=== PATIENT | male | born 1940 | race Two or more races ===

== ENCOUNTER 2024-07-22 12:16 | Emergency (ER) | payer MEDICARE, MEDICAID, SELFPAY ==
[2024-07-22 12:22] VITALS: BP 159/80; PULSE 81; RESP 19; TEMP 36.8; O2SAT 95; BMI 26.4
[2024-07-22] MEDS: DIPHTH,PERTUSS(ACELL),TET VAC 0.5 ML VIAL IMi (13:13)
--- NOTE | 2024-07-22 14:46 | PD.EDHAND ---
Upper Extremity Injury RME/HPI General Chief Complaint: Wound/Laceration Stated Complaint: LEFT HAND LACERATION Time Seen by Provider: 07/22/24 12:30 Source: patient Arrival date/time: 07/22/24 12:16 This is an 83-year-old male who presents to the emergency department with complaints of a laceration to his left palm. Patient reports he was attempting to grab a knife to cut a fruit when he accidentally lacerated between. his first and second digit of his left hand. No other injuries or concerns. Mode of arrival: ambulatory Limitations: no limitations Related Data Home Medications ?Medication ?Instructions ?Recorded ?Confirmed carvedilol 3.125 mg tablet 3.125 mg PO BID 04/15/24 04/19/24 lisinopril 20 mg tablet 20 mg PO HS 04/15/24 04/19/24 Previous Rx's ?Medication ?Instructions ?Recorded cephalexin 500 mg capsule 500 mg PO BID 5 days #10 caps 07/22/24 Allergies Allergy/AdvReac Type Severity Reaction Status Date / Time No Known Allergies Allergy Verified 07/22/24 12:18 Review of Systems Review of Systems Systems Reviewed: All systems reviewed, normal except as documented Narrative Review of Systems: Gen: No fever, no chills, no weight loss EYES: No discharge, no visual changes, no pain HEENT: No ear pain, no congestion, no sore throat PULM: No shortness of breath, no cough, no congestion CV: No chest pain, no dyspnea on exertion, no palpitations GI: No nausea, no vomiting, no diarrhea, no pain, no constipation : No frequency, no urgency,? no dysuria Musc/skel: No joint pain, no back pain Skin: laceration to palm Psyc: No hallucinations, no depression Heme/Lymph: No easy bleeding or bruising tendencies Neuro: No weakness, no headache ED Exam General Limitations: Present no limitations General appearance: Present alert and in no apparent distress Head Head exam: Present atraumatic Eye Eye exam: Present normal appearance, PERRL and EOMI ENT ENT exam: Present normal exam, normal oropharynx and mucous membranes moist Neck Neck exam: Present normal inspection, full ROM and trachea midline Chest Chest inspection: Present normal inspection and symmetric chest wall rise Respiratory Respiratory exam: Present normal lung sounds bilaterally Cardiovascular Cardiovascular exam: Present regular rate, normal rhythm and normal heart sounds Abdominal Exam Abdominal exam: Present soft and normal bowel sounds Extremities Exam Extremities exam: Present full ROM Expanded Upper Extremity Exam Shoulder exam: Present normal inspection Elbow exam: Present normal inspection Hand L/R front image: 1. laceration (2cm super ficial laceration) Back Exam Back exam: Present normal inspection and full ROM Neurological Exam Neurological exam: Present alert, oriented X3 and CN II-XII intact Psychiatric Psychiatric exam: Present normal affect and normal mood Skin Skin exam: Present warm, dry, intact and normal color Course Quality Measures none Orders Category Date Time Status Wound Care NOW Care 07/22/24 13:09 Completed Tet,Diphth,Pertuss(Acell)-Tdap [Boostrix Vacc] Med 07/22/24 13:09 Discontinued 0.5 ml IMI .ONCE ONE Vital Signs Vital signs: Vital Signs Temperature 98.3 F 07/22/24 12:22 Pulse Rate 81 07/22/24 12:22 Respiratory Rate 19 07/22/24 12:22 Blood Pressure 159/80 H 07/22/24 12:22 Pulse Oximetry (%) 95 07/22/24 12:22 Oxygen Delivery Method Room Air 07/22/24 12:22 Procedures -ED Laceration Laceration 1: Site: hand Side (If applicable): left Size (cm): 2 Description: linear Depth: simple, single layer Local Anesthetic: lidocaine 1% Amount of anesthesia used (mL): 10 Pre-repair: wound explored Skin layer closed with: vicryl Size (cm): 4-0 Number of sutures: 7 Technique: simple, interrupted Extremity Injury Patient data External records reviewed:: [facility] previous records Clinical information provided by:: patient Social determinants that could affect healthcare access:: none Patient has the following chronic illnesses:: no How is presenting disease/condition affected by chronic disease/condition?: no chronic disease Evaluation data The following diagnostics were reviewed and interpreted by me:: other (specify) Lab and/or radiology exams considered but not ordered:: no Interpretation Summary: no Medications / Prescriptions Medications or Prescriptions considered but not ordered:: no Medication administrations:: Medication Administration History Discontinued Medications Diphtheria/Tetanus/Acell Pertussis (Diphth,Pertuss(Acell),Tet Vac 0.5 Ml Vial) 0.5 ml IMi .ONCE ONE Stop: 07/22/24 13:10 Last Admin: 07/22/24 13:13 Dose: 0.5 ml Documented By: LUIS All medications administered and effective Consultations Consultation(s) initiated? (list below): No Diagnosis Upper Extremity Injury Differential Diagnosis: other ( skin avulsion, laceration, abrasion laceration left palm.) Most likely diagnosis given after review of the tests above:: laceration left palm. Admission Indicated Admission indicated?: not indicated Admission Request Was there a request for admission?: No Disposition Plan Disposition Plan: Discharge Discharge Attestation Discharge Attestation: The patient and all family members were given an opportunity to ask questions and understood the discharge instructions. Discharge instructions specifically effects, indications for sooner follow up or return to the emergency department, and the expected course of current diagnosis. Patient condition: Stable Discharge Plan Plan Patient Disposition: HOME (Self Care) Patient condition on transfer: Stable Prescriptions/Referrals Prescriptions/Med Rec: New cephalexin 500 mg capsule 500 mg PO BID 5 Days Qty: 10 0RF No Action lisinopril 20 mg tablet 20 mg PO HS carvedilol 3.125 mg Tablet 3.125 mg PO BID Rx Instructions: must administer with a meal/food Problem List Clinical Impression: Laceration Patient/Caregiver Discharge Instructions Discharge Activity: activity as tolerated Education Materials: ED Laceration Hand with ... Additional Instructions: Please follow up with Primary Doctor in 7-10 day for suture removal. Please return to ER if theres is any sign of infection. Please keep wound clean and dry. Print Language: Citizen Of [place] Stand Alone Forms: Nano Award Info., Patient Portal Info Letter SHEFALI/ERNA Supervising Physician PA/ERNA Supervising Physician: Dr Craven
== END 2024-07-22 15:25 | disposition home or self-care (01) ==
LOC: SERX 14:57
PROVIDERS: Emergency Provider Emergency Medicine; PCP Family Medicine
DX: S61.412A Laceration without foreign body of left hand, initial encounter (principal); W26.0XXA Contact with knife, initial encounter; Z23 Encounter for immunization
CPT/HCPCS: 12001; 90471; 90715; 99283

== ENCOUNTER 2025-01-31 11:09 | Emergency (ER) | payer MEDICARE, MEDICAID, SELFPAY ==
[2025-01-31 11:10] VITALS: BMI 25.0
--- NOTE | 2025-01-31 11:30 | PD.EDRME ---
Rapid Medical Screening Exam RME Arrival date/time: 01/31/25 11:09 84-year-old male with a history of hypertension presents to the emergency room with a chief complaint of difficulty urinating and abdominal distention. Patient states he is able to urinate but only dribbles. I have greeted and performed a focused initial assessment of this patient. A comprehensive ED assessment and evaluation of the patient, analysis of all test results, and completion of the medical decision making process will be conducted by additional ED providers. Chief Complaint: Recheck/Abnormal Lab/Rx Time Seen by Provider: 01/31/25 11:17 Vital signs reviewed by provider: Yes
[2025-01-31 11:31] VITALS: BP 144/89; PULSE 73; RESP 18; TEMP 36.9; O2SAT 98
[2025-01-31 12:03] LABS: Basophils # (Auto) 0.1 Thou/mm3 (0.0-0.2); Basophils % (Auto) 1 % (0-2.5); Eosinophils # (Auto) 0.2 Thou/mm3 (0.0-0.5); Eosinophils % (Auto) 3 % (0-10); Hematocrit 45.5 % (41.0-53.0); Hemoglobin 16.4 g/dL (13.5-16.0); Immature Granulocytes % (Auto) 1 % (0-0); Immature Granulocytes Auto 0.03 Thou/mm3 (0.00-0.00); Lymphocytes # (Auto) 2.1 Thou/mm3 (1.0-4.8); Lymphocytes % (Auto) 33 % (10-50); Mean Corpuscular Hemoglobin 32.3 pg (25.0-35.0); Mean Corpuscular Volume 90 fL (80-100); Monocytes # (Auto) 0.7 Thou/mm3 (0.0-0.8); Monocytes % (Auto) 10 % (0-12); Neutrophils # (Auto) 3.4 Thou/mm3 (1.8-7.7); Neutrophils % (Auto) 52 % (37-80); Nucleated Red Blood Cell % 0 /100 WBC (0); Platelet Count 187 Thou/mm3 (140-440); RDW Standard Deviation 42.4 fL (35.1-43.9); Red Blood Count 5.07 Miln/mm3 (4.50-5.90); White Blood Count 6.4 Thou/mm3 (3.8-10.6)
[2025-01-31 12:04] LABS: Collection Type, Urine Clean Catch; RBC,Urine 0 /hpf (0-3); Squamous Epithelial Cell,Urine 0 /hpf (0-5)
[2025-01-31 12:16] LABS: Alanine Aminotransferase 13 U/L (10-49); Albumin, Serum 4.4 gm/dL (3.4-4.8); Albumin/Globulin Ratio 1.5 (1.2-2.2); Alkaline Phosphatase 80 U/L (46-116); Anion Gap 10 (7-16); Aspartate Amino Transferase 20 U/L (0-34); BUN/Creatinine Ratio 11 Ratio (12-20); Bilirubin,Total 0.7 mg/dL (0.3-1.2); Blood Urea Nitrogen 15 mg/dL (9-23); Calcium 8.9 mg/dL (8.3-10.6); Calcium (Corrected) 8.9 mg/dL (8.5-10.1); Carbon Dioxide 27.3 mMol/L (20.0-31.0); Chloride 104 mMol/L (98-107); Creatinine (Component) 1.4 mg/dL (0.6-1.3); Estimated Creatinine Clearance 35.4 mL/min (>60); Glucose 89 mg/dL (74-106); Lipase 53 U/L (12-53); Osmolality,Calculated 281 (275-295); Potassium 4.1 mMol/L (3.4-5.1); Sodium 141 mMol/L (136-145); Total Protein 7.4 gm/dL (5.7-8.2); eGFR 50 See Note
[2025-01-31 12:17] LABS: Bilirubin,Urine Negative (Negative); Blood,Urine Negative (Negative); Clarity,Urine Clear (Clear/Hazy); Color,Urine Lt-Yellow (Lt Yel-Yel); Glucose, Urine Negative (Negative); Hyaline Casts,Urine < 1 /hpf (0-1); Ketones,Urine Negative (Negative); Leukocyte Esterase,Urine Negative (Negative); Nitrite,Urine Negative (Negative); PH,Urine 5.5 (5.0-7.0); Protein,Urine Negative (Neg - Trace); Urobilinogen,Urine Negative mg/dL (0.0-1.0); WBC,Urine < 1 /hpf (0-5)
[2025-01-31 16:37] LABS: Prostate Specific Antigen 2.24 ng/mL (0-4.00)
--- NOTE | 2025-01-31 17:01 | PD.EDMALE ---
ED Male Genitalurinary RME/HPI General Chief complaint: Recheck/Abnormal Lab/Rx Stated complaint: NOT PEEING ENOUGH X1 MONTH HX PROSTATE ISSUES Time Seen by Provider: 01/31/25 11:17 Arrival date/time: 01/31/25 11:09 This is a case of 84-year-old male with a history of hypertension presents to the emergency room with a chief complaint of difficulty urinating and abdominal distention. Patient states he is able to urinate but only dribbles. Patient states that since last year he was on and off here due to urinary retention and have history of Pena catheter placement he was regularly seen by the urologist Dr Ferris patient is fine until today patient is unable to urinate for 6 hours thus decided to start consult here in the emergency room denies any dysuria hematuria fever chills abdominal pain flank pain abdominal pain lower back pain Limitations: no limitations RME / HPI RME / HPI Narrative: 01/31/25 11:09 84-year-old male with a history of hypertension presents to the emergency room with a chief complaint of difficulty urinating and abdominal distention. Patient states he is able to urinate but only dribbles. I have greeted and performed a focused initial assessment of this patient. A comprehensive ED assessment and evaluation of the patient, analysis of all test results, and completion of the medical decision making process will be conducted by additional ED providers. Related Data Home Medications ?Medication ?Instructions ?Recorded ?Confirmed carvedilol 3.125 mg tablet 3.125 mg PO BID 04/15/24 04/19/24 lisinopril 20 mg tablet 20 mg PO HS 04/15/24 04/19/24 Allergies Allergy/AdvReac Type Severity Reaction Status Date / Time No Known Allergies Allergy Verified 01/31/25 11:13 Review of Systems Review of Systems Systems Reviewed: All systems reviewed, normal except as documented Constitutional Constitutional: Reports system reviewed and no additional complaints, except as documented and Reports as per HPI Cardiovascular Cardiovascular: Reports system reviewed and no additional complaints, except as documented and Reports as per HPI Respiratory Respiratory: Reports system reviewed and no additional complaints, except as documented and Reports as per HPI Gastrointestinal Gastrointestinal: Reports system reviewed and no additional complaints, except as documented, Reports as per HPI, Denies abdominal pain, Denies diarrhea, Denies fecal incontinence, Denies hematemesis, Denies nausea and Denies vomiting Genitourinary Genitourinary: Reports system reviewed and no additional complaints, except as documented, Reports as per HPI, Reports difficulty urinating, Denies dysuria, Denies hematuria, Denies nocturia, Denies penile discharge, Denies scrotal swelling, Denies urinary frequency, Denies urinary hesitancy, Reports urinary incontinence and Denies urinary urgency Musculoskeletal Musculoskeletal: Reports system reviewed and no additional complaints, except as documented and Reports as per HPI Neurologic Neurologic: Reports system reviewed and no additional complaints, except as documented and Reports as per HPI Past Medical History Past Medical History NEUROLOGIC: Negative Neurological Disorders or Seizures CARDIAC: Positive Cardiac Disorders and Hypertension; Negative Congestive Heart Failure RESPIRATORY: Negative Chronic Obstructive Pulmonary Disease (COPD) GASTROINTESTINAL: Negative Gastrointestinal Disorders or Hepatitis GENITOURINARY: Negative Genitourinary Disorders or Renal Disease MUSCULOSKELETAL: Positive Musculoskeletal Disorders and Arthritis ENDOCRINE: Negative Endocrine Disorders, Diabetes Mellitus Type 1 or Diabetes Mellitus Type 2 HEMATOLOGIC: Negative Blood Disorders OTHER HISTORY: Positive Measles; Negative Falls, Blood Transfusions, Blood Transfusion Reaction, Anesthesia Reactions, MRSA or Cancer Family History FAMILY HISTORY: Negative Family Cardiac Disorders or Family Anesthesia Reaction Social History SMOKING STATUS: Never smoker ED Exam General Limitations: Present no limitations General appearance: Present alert and in no apparent distress; Absent appears intoxicated or anxious Head Head exam: Present atraumatic, normocephalic and normal inspection Eye Eye exam: Present normal appearance, PERRL and EOMI ENT ENT exam: Present normal exam, normal oropharynx and mucous membranes moist Neck Neck exam: Present normal inspection, full ROM and trachea midline Chest Chest inspection: Present normal inspection and symmetric chest wall rise Respiratory Respiratory exam: Present normal lung sounds bilaterally; Absent respiratory distress, wheezes, stridor, accessory muscle use or prolonged expiratory phase Cardiovascular Cardiovascular exam: Present regular rate, normal rhythm and normal heart sounds; Absent bradycardia, tachycardia, irregular rhythm, systolic murmur or diastolic murmur Abdominal Exam Abdominal exam: Present soft and normal bowel sounds; Absent distention, tenderness, guarding, rebound, rigidity, diminished bowel sounds, hyperactive bowel sounds, hypoactive bowel sounds, organomegaly, trauma, incision, psoas sign, obturator sign, heel tap sign, Nice's sign, Rovsing's sign or tenderness at McBurney's Point exam: Present normal inspection and other (No bladder tenderness no CVA tenderness) Extremities Exam Extremities exam: Present normal inspection and full ROM Back Exam Back exam: Present normal inspection and full ROM Neurological Exam Neurological exam: Present alert, oriented X3 and CN II-XII intact Psychiatric Psychiatric exam: Present normal affect and normal mood Skin Skin exam: Present warm, dry, intact and normal color Course Quality Measures none Orders Category Date Time Status Pena [Urinary Catheter] QS Care 01/31/25 11:29 Active CBC Stat Lab 01/31/25 11:35 Completed CMP [Comprehensive Metabolic Panel] Stat Lab 01/31/25 11:35 Completed Lipase Stat Lab 01/31/25 11:35 Completed PSA [Prostate Specific Antigen] Stat Lab 01/31/25 11:35 Completed UA [Urinalysis] Stat Lab 01/31/25 11:58 Completed Urine Culture Stat Lab 01/31/25 11:58 Received Vital Signs Vital signs: Vital Signs Temperature 98.4 F 01/31/25 11:31 Pulse Rate 73 01/31/25 11:31 Respiratory Rate 18 01/31/25 11:31 Blood Pressure 144/89 H 01/31/25 11:31 Pulse Oximetry (%) 98 01/31/25 11:31 Oxygen Delivery Method Room Air 01/31/25 11:31 Oxygen saturation 98% in room air Urogenital - Male MDM Narrative MDM Narrative:: This is a case of 84-year-old male with a history of hypertension presents to the emergency room with a chief complaint of difficulty urinating and abdominal distention. Patient states he is able to urinate but only dribbles. Patient states that since last year he was on and off here due to urinary retention and have history of Pena catheter placement he was regularly seen by the urologist Dr Ferris patient is fine until today patient is unable to urinate for 6 hours thus decided to start consult here in the emergency room denies any dysuria hematuria fever chills abdominal pain flank pain abdominal pain lower back pain Physical examination patient is awake alert oriented not in distress not toxic looking well-hydrated well-nourished no signs and symptoms of sepsis no signs and symptoms of dehydration abdominal exam is benign nonsurgical no guarding no rebound no rigidity no tenderness no bladder distended no CVA tenderness I saw this patient after Pena catheter insertion patient verbalized resolved of the symptoms bladder is soft no distention no tenderness blood test showed no leukocytosis no anemia liver function is normal no electrolyte imbalance but the creatinine is high 1.4 EGFR far is 58 BUN is 11 suggestive of chronic kidney disease 1 patient urinalysis is normal CT scan showed prostatomegaly At this point patient condition improve and resolve I spoke to the patient regarding Pena catheter care the importance to see the urologist for further evaluation and treatment of urinary retention and prostatomegaly and to see actuarial mathematician to monitor his kidney function Patient urinalysis is normal thus patient do not need any antibiotic patient is pain-free upon discharge Patient was discharged with comfortable condition walking with stable gait. Patient verbalized no further complains explained diagnosis and answered patient question. Patient is comfortable with the proposed management plan including the need to follow up with his/her primary care physician and any specialist if applicable Discussed patient for any urgent condition or worsening sx, He/She needed to go to emergency room immediately or call 911. Patient acknowledge the responsibility to follow up as instructed and to monitor her/his symptoms. For any persistence of the symptoms for more than 3-5 days return precaution advised. Discussed the result of the test and was given printed discharge instruction Patient data External records reviewed:: [facility] previous records Clinical information provided by:: patient Social determinants that could affect healthcare access:: none Patient has the following chronic illnesses:: None How is presenting disease/condition affected by chronic disease/condition?: no chronic disease Evaluation data The following diagnostics were reviewed and interpreted by me:: lab results and radiology exam(s) Lab and/or radiology exams considered but not ordered:: Reviewed Interpretation Summary: Reviewed Medications / Prescriptions Medications or Prescriptions considered but not ordered:: Given Medication administrations:: Given Consultations Consultation(s) initiated? (list below): No Diagnosis Urogenital Male Differential Diagnosis: urinary tract infection, urethritis, prostatitis and acute retention of urine Most likely diagnosis given after review of the tests above:: Urinary retention Admission Indicated Admission indicated?: not indicated Explain why admission is indicated or not indicated:: Not indicated Admission Request Was there a request for admission?: No Disposition Plan Disposition Plan: Discharge Discharge Attestation Discharge Attestation: The patient and all family members were given an opportunity to ask questions and understood the discharge instructions. Discharge instructions specifically effects, indications for sooner follow up or return to the emergency department, and the expected course of current diagnosis. Patient condition: Stable Discharge Plan Plan Patient Disposition: HOME (Self Care) Prescriptions/Referrals Prescriptions/Med Rec: No Action lisinopril 20 mg tablet 20 mg PO HS carvedilol 3.125 mg Tablet 3.125 mg PO BID Rx Instructions: must administer with a meal/food Referrals: Srinivas Sadler MD [Physician] - 02/02/25 (For further evaluation and treatment of urinary retention and prostatomegaly) No Primary/Family,Physician [Primary Care Provider] - In 1 week Problem List Clinical Impression: Acute urinary retention, Benign enlargement of prostate, Chronic kidney disease (CKD) stage G2/A1, mildly decreased glomerular filtration rate (GFR) between 60-89 mL/min/1.73 square meter and albuminuria creatinine ratio less than 30 mg/g Patient/Caregiver Discharge Instructions Education Materials: CKD Dc, ED BPH (Enlarged Prostate), ED Urinary Retention, Male Additional Instructions: Follow-up with your primary care physician in 2 days for reevaluation and to be referred to urologist for further evaluation and treatment of urinary retention and prostatomegaly keep the Pena catheter intact and clean keep the Pena catheter until cleared by your urologist for any recurrence worsening symptoms or any emergent concern return to the emergency room immediately or call 911 it is also very important to see your primary care physician to be referred to the actuarial mathematician for further evaluation and to monitor your kidney function Print Language: French Stand Alone Forms: Nano Award Info., Patient Portal Info Letter PA/ERNA Supervising Physician SHEFALI/ERNA Supervising Physician: dr azul
== END 2025-01-31 17:06 | disposition home or self-care (01) ==
PROVIDERS: Nurse Practitioner Family; Emergency Provider Emergency Medicine
DX: N40.1 Benign prostatic hyperplasia with lower urinary tract symptoms (principal); R33.8 Other retention of urine; I12.9 Hypertensive chronic kidney disease with stage 1 through stage 4 chronic kidney disease, or unspecified chronic kidney disease; N18.2 Chronic kidney disease, stage 2 (mild)
CPT/HCPCS: 51702; 36415; 80053; 81001; 83690; 84153; 85025; 87086; 99283

== ENCOUNTER 2025-02-06 16:00 | Emergency (ER) | payer MEDICARE, MEDICAID, SELFPAY ==
[2025-02-06 16:12] VITALS: BP 117/72; PULSE 103; RESP 20; TEMP 36.9; O2SAT 95
--- NOTE | 2025-02-06 16:20 | XR_ITS ---
Examination: CT abdomen and pelvis without contrast. Coronal 3-D reconstructions. Sagittal 2-D reconstructions. Date and time of exam:The second, 2024, 1827 hours Comparison May 06, 2024 INDICATIONS: Intermittent hematuria 1 week CTDI: vol (mGy): 5.68 DLP: (mGycm): 346 Technique: Axial images of the abdomen have been obtained, 3 mm slice thickness Intravenous contrast material has not been administered. Low dose protocols were performed. One or more of the following dose reduction techniques were used; automated exposure control, adjustment of the mA and/or KV according to patient size, use of iterative reconstruction technique. Findings: Stable low-density left lobe liver lesion Liver is mildly irregular in contour Contracted gallbladder Spleen is not enlarged No pancreatic or adrenal mass. 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
--- NOTE | 2025-02-06 16:21 | PD.EDRME ---
Rapid Medical Screening Exam RME Arrival date/time: 02/06/25 16:00 84-year-old male presents the emergency department today for complaints of pelvic pain, penile pain patient has a catheter in place. Chief Complaint: Urogenital-Male Time Seen by Provider: 02/06/25 16:16 Vital signs: Vital Signs Temperature 98.5 F 02/06/25 16:12 Pulse Rate 103 H 02/06/25 16:12 Respiratory Rate 20 02/06/25 16:12 Blood Pressure 117/72 02/06/25 16:12 Pulse Oximetry (%) 95 02/06/25 16:12 Oxygen Delivery Method Room Air 02/06/25 16:12
[2025-02-06] MEDS: LIDOCAINE JELLY 2% (Urojet) 10 ML TUBE TOP (16:45)
[2025-02-06 17:10] LABS: Basophils # (Auto) 0.1 Thou/mm3 (0.0-0.2); Basophils % (Auto) 1 % (0-2.5); Eosinophils # (Auto) 0.3 Thou/mm3 (0.0-0.5); Eosinophils % (Auto) 3 % (0-10); Hematocrit 41.7 % (41.0-53.0); Hemoglobin 14.8 g/dL (13.5-16.0); Immature Granulocytes % (Auto) 0 % (0-0); Immature Granulocytes Auto 0.03 Thou/mm3 (0.00-0.00); Lymphocytes # (Auto) 2.1 Thou/mm3 (1.0-4.8); Lymphocytes % (Auto) 23 % (10-50); Mean Corpuscular HGB Conc 35.5 g/dl (31.0-37.0); Mean Corpuscular Volume 90 fL (80-100); Monocytes # (Auto) 0.9 Thou/mm3 (0.0-0.8); Monocytes % (Auto) 10 % (0-12); Neutrophils # (Auto) 5.8 Thou/mm3 (1.8-7.7); Neutrophils % (Auto) 64 % (37-80); Nucleated Red Blood Cell % 0 /100 WBC (0); Platelet Count 189 Thou/mm3 (140-440); RDW Standard Deviation 42.5 fL (35.1-43.9); Red Blood Count 4.62 Miln/mm3 (4.50-5.90); White Blood Count 9.2 Thou/mm3 (3.8-10.6)
[2025-02-06 17:30] LABS: Alanine Aminotransferase 12 U/L (10-49); Albumin, Serum 3.9 gm/dL (3.4-4.8); Albumin/Globulin Ratio 1.5 (1.2-2.2); Alkaline Phosphatase 70 U/L (46-116); Anion Gap 8 (7-16); Aspartate Amino Transferase 18 U/L (0-34); BUN/Creatinine Ratio 11 Ratio (12-20); Bilirubin,Total 0.6 mg/dL (0.3-1.2); Blood Urea Nitrogen 20 mg/dL (9-23); Calcium 8.3 mg/dL (8.3-10.6); Calcium (Corrected) 8.4 mg/dL (8.5-10.1); Carbon Dioxide 28.8 mMol/L (20.0-31.0); Chloride 107 mMol/L (98-107); Creatinine (Component) 1.8 mg/dL (0.6-1.3); Globulin 2.6 gm/dL (2.3-3.5); Glucose 141 mg/dL (74-106); Lipase 51 U/L (12-53); Osmolality,Calculated 291 (275-295); Potassium 4.4 mMol/L (3.4-5.1); Sodium 144 mMol/L (136-145); Total Protein 6.5 gm/dL (5.7-8.2); eGFR 37 See Note
--- NOTE | 2025-02-06 19:14 | PD.EDMALE ---
ED Male Genitalurinary RME/HPI General Chief complaint: Urogenital-Male Stated complaint: PAIN IN URINARY CATHETER Time Seen by Provider: 02/06/25 16:16 Arrival date/time: 02/06/25 16:00 RME / HPI RME / HPI Narrative: 02/06/25 16:00 84-year-old male presents the emergency department today for complaints of pelvic pain, penile pain patient has a catheter in place. -------- Dr. Licea?s Main ED Evaluation: 84yo male with a history of HTN, indwelling mcpherson catheter presents to the ED for a chief complaint of urinary retention. Patient states he had his leg bag changed here at our facility 6 days ago, reporting his mcpherson has been draining a little, but not a lot. Patient states he feels like he has to urinate. Patient endorses have mild generalized abdominal discomfort. Patient denies any fever, chills, back pain or any other associated symptoms. Patient states he has an appointment with a urologist on 02/17/25. NKA. Related Data Home Medications ?Medication ?Instructions ?Recorded ?Confirmed carvedilol 3.125 mg tablet 3.125 mg PO BID 04/15/24 04/19/24 lisinopril 20 mg tablet 20 mg PO HS 04/15/24 04/19/24 Previous Rx's ?Medication ?Instructions ?Recorded cefuroxime axetil 500 mg tablet 500 mg PO BID Urinary tract 02/06/25 infection #14 tabs phenazopyridine 100 mg tablet 100 mg PO TID PRN pain 6 doses #6 02/06/25 (Pyridium) tabs Allergies Allergy/AdvReac Type Severity Reaction Status Date / Time No Known Allergies Allergy Verified 02/06/25 16:05 Review of Systems Review of Systems Systems Reviewed: All systems reviewed, normal except as documented Past Medical History Past Medical History NEUROLOGIC: Negative Neurological Disorders or Seizures CARDIAC: Positive Cardiac Disorders and Hypertension; Negative Congestive Heart Failure RESPIRATORY: Negative Chronic Obstructive Pulmonary Disease (COPD) GASTROINTESTINAL: Negative Gastrointestinal Disorders or Hepatitis GENITOURINARY: Negative Genitourinary Disorders or Renal Disease MUSCULOSKELETAL: Positive Musculoskeletal Disorders and Arthritis ENDOCRINE: Negative Endocrine Disorders, Diabetes Mellitus Type 1 or Diabetes Mellitus Type 2 HEMATOLOGIC: Negative Blood Disorders OTHER HISTORY: Positive Measles; Negative Falls, Blood Transfusions, Blood Transfusion Reaction, Anesthesia Reactions, MRSA or Cancer Family History FAMILY HISTORY: Negative Family Cardiac Disorders or Family Anesthesia Reaction Social History SMOKING STATUS: Never smoker ED Exam Narrative Physical exam: GENERAL APPEARANCE: alert and oriented x 4, well-developed, well-nourished, no acute distress VITALS: All vitals were reviewed and the pulse ox is 95% on room air, which is normal according to my interpretation. HEENT: Normocephalic, atraumatic; pupils equal, round, reactive to light; EOMI; mucous membranes pink, moist; oropharynx clear NECK: Supple LUNGS: CTABL; no wheezes, no rales, no rhonchi HEART: Regular rate, regular rhythm; normal S1, S2; no murmurs ABDOMEN: moderately distended; soft, no tenderness, no guarding, no rebound BACK: no CVA tenderness EXTREMITIES: atraumatic; no edema NEUROLOGIC: awake; alert and oriented x4; cranial nerves II-XII grossly intact; no focal sensory or motor deficits PSYCHIATRIC: appropriate mood and affect SKIN: warm, dry, normal color; no rashe Course Quality Measures none Orders Category Date Time Status Mcpherson [Urinary Catheter] NOW Care 02/06/25 16:21 Completed Mcpherson to Leg Bag Routine Care 02/06/25 16:[address] abdomen pelvis wo con Stat Exams 02/06/25 16:20 Completed CBC Stat Lab 02/06/25 17:00 Completed Comprehensive Metabolic Panel Stat Lab 02/06/25 17:00 Completed Lipase Stat Lab 02/06/25 17:00 Completed UA, C/S IF [Urinalysis, C/S if Indicated] Stat Lab 02/06/25 19:08 Completed Urine Culture Stat Lab 02/06/25 19:08 Received Lidocaine Jelly 2% Urojet [Xylocaine Jelly 2% Urojet] Med 02/06/25 16:21 Discontinued See Dose Instructions TOP X1 ONE Phenazopyridine HCl [Pyridium] Med 02/06/25 19:22 Discontinued 100 mg PO X1 ONE cefTRIAXone/D5w 1gm IV premix [Rocephin/D5w 1gm IV Med 02/06/25 19:58 Discontinued premix] 1 gm in 50 ml IV X1 Vital Signs Vital signs: Vital Signs Temperature 98.5 F 02/06/25 16:12 Pulse Rate 103 H 02/06/25 16:12 Respiratory Rate 20 02/06/25 16:12 Blood Pressure 117/72 02/06/25 16:12 Pulse Oximetry (%) 95 02/06/25 16:12 Oxygen Delivery Method Room Air 02/06/25 16:12 Urogenital - Male MDM Narrative MDM Narrative:: Scribe Attestation: 02/06/25 - Ayanna Huang am scribing for and in the presence of Dr. Licea. Patient data External records reviewed:: [facility] previous records (Per chart review, patient was seen here on 01/31/25 for acute urinary retention.) Clinical information provided by:: patient Social determinants that could affect healthcare access:: none Patient has the following chronic illnesses:: HTN How is presenting disease/condition affected by chronic disease/condition?: uneffected by Evaluation data The following diagnostics were reviewed and interpreted by me:: lab results and radiology exam(s) Lab and/or radiology exams considered but not ordered:: none Interpretation Summary: CBC is normal, Creatinine 1.8, Lipase normal, UA positive for UTI. ----- [place] [facility] Report Signed Patient: JLUIS REYNOSO Record#: [id number] Birthdate: 1940 Age/Sex: 84 / M Location: [facility] Attending Dr: Ordering Physician: Yvonne ALVA)Cory NP Date of Service: 02/06/25 Procedure(s): CT abdomen pelvis wo con Accession Number(s): [id number] cc: Yvonne ALVA),Cory RAMOS; Jerry Witt MD~ Examination: CT abdomen and pelvis without contrast. Coronal 3-D reconstructions. Sagittal 2-D reconstructions. Date and time of exam:The second, 1826 hours Comparison May 06, 2024 INDICATIONS: Intermittent hematuria 1 week CTDI: vol (mGy): 5.68 DLP: (mGycm): 346 Technique: Axial images of the abdomen have been obtained, 3 mm slice thickness Intravenous contrast material has not been administered. Low dose protocols were performed. One or more of the following dose reduction techniques were used; automated exposure control, adjustment of the mA and/or KV according to patient size, use of iterative reconstruction technique. Findings: Stable low-density left lobe liver lesion Liver is mildly irregular in contour Contracted gallbladder Spleen is not enlarged No pancreatic or adrenal mass. Perinephric stranding No renal or ureteral calculi Aorta normal size No pericecal inflammatory change Marked abnormal thickening of the urinary bladder wall up to 17 mm Significant prostatomegaly AP dimension 5.3 cm Advanced degenerative disc disease L4-L5 disc fusion L5-S1 IMPRESSION: Suspect primary hepatocellular disease No renal or ureteral calculi Marked abnormal thickening of the urinary bladder wall, which may be secondary to the patient's marked prostatomegaly, differential would also include cystitis, bladder cancer, recommend urology consultation Dictated By: Jerry Witt MD Signed By: <Electronically signed by Jerry Witt MD in OV> 02/06/25 5837 Medications / Prescriptions Medications or Prescriptions considered but not ordered:: none Medication administrations:: Medication Administration History Discontinued Medications Ceftriaxone Sodium/Dextrose (Rocephin/D5w 1gm Iv Premix) 1 gm in 50 mls @ 100 mls/hr IV X1 ONE Stop: 02/06/25 20:27 Last Infusion: 02/06/25 20:47 Dose: Infused Documented By: Admin: 02/06/25 20:16 Dose: 100 mls/hr Documented By: CB Lidocaine HCl (Lidocaine Jelly 2% (Urojet) 10 Ml Tube) 0 ml TOP X1 ONE Stop: 02/06/25 16:22 Last Admin: 02/06/25 16:45 Dose: 5 ml Documented By: KF Phenazopyridine HCl (Phenazopyridine Hcl 100 Mg Tablet) 100 mg PO X1 ONE Stop: 02/06/25 19:23 Last Admin: 02/06/25 19:40 Dose: 100 mg Documented By: NICOLETTE see above Consultations Consultation(s) initiated? (list below): No Diagnosis Urogenital Male Differential Diagnosis: urinary tract infection, prostatitis and other (hemorrhagic cystitis, pyelonephritis) Most likely diagnosis given after review of the tests above:: see clinical impression below Admission Indicated Admission indicated?: not indicated Explain why admission is indicated or not indicated:: Patient is stable for outpatient antibiotic management. Admission Request Was there a request for admission?: No Disposition Plan Disposition Plan: Discharge Discharge Attestation Discharge Attestation: The patient and all family members were given an opportunity to ask questions and understood the discharge instructions. Discharge instructions specifically effects, indications for sooner follow up or return to the emergency department, and the expected course of current diagnosis. Patient condition: Stable Discharge Plan Plan Patient Disposition: HOME (Self Care) Discharge Disposition comment: Stable for discharge home Patient condition on transfer: Stable Prescriptions/Referrals Prescriptions/Med Rec: New phenazopyridine [Pyridium] 100 mg tablet 100 mg PO TID PRN (Reason: pain) Qty: 6 0RF cefuroxime axetil 500 mg tablet 500 mg PO BID Qty: 14 0RF No Action lisinopril 20 mg tablet 20 mg PO HS carvedilol 3.125 mg Tablet 3.125 mg PO BID Rx Instructions: must administer with a meal/food Referrals: Derrick Moncada MD [Primary Care Provider] - In 1 week Problem List Clinical Impression: Urinary tract infection Patient/Caregiver Discharge Instructions Discharge Activity: activity as tolerated Education Materials: ED Mcpherson Catheter, Care, ED Bladder Infection, Male (Adult) Additional Instructions: Please return to the emergency department if you have any worsening or any further medical problems such as fevers, chills, shakes or sweats. Or any development of lower back pain or abdominal pain. Otherwise you should follow-up in the [facility] within the next several days There are 2 medicines waiting for you at the pharmacy. One of them is an antibiotic called cefuroxime. You take this medicine twice per day for 7 days. You should continue to take this medicine until it is completely done even if you are feeling better before that. Print Language: Hungarian Stand Alone Forms: [employer] Info., Patient Portal Info Letter
[2025-02-06 19:32] LABS: Collection Type, Urine Clean Catch; Squamous Epithelial Cell,Urine 0 /hpf (0-5)
--- NOTE | 2025-02-06 19:35 | PC.NURSE ---
Assumed care of pt. Pt resting quietly on gurney with no distress noted. Skin pink, warm, and dry. Resp even and unlabored. Vitals within normal limits. Urine noted to be draining from mcpherson into gravity bag. Pt awaiting disposition. Plan of care is ongoinng at this time.
[2025-02-06] MEDS: PHENAZOPYRIDINE HCL 100 MG TABLET PO (19:40)
[2025-02-06 19:45] LABS: Bacteria,Urine Rare; Bilirubin,Urine Negative (Negative); Blood,Urine 3+ (Negative); Glucose, Urine Negative (Negative); Ketones,Urine Negative (Negative); Leukocyte Esterase,Urine Positive (Negative); Nitrite,Urine Negative (Negative); PH,Urine 6.5 (5.0-7.0); Protein,Urine 2+ (Neg - Trace); RBC,Urine 2979 /hpf (0-3); Specific Gravity,Urine 1.025 (1.001-1.035); Urobilinogen,Urine Negative mg/dL (0.0-1.0); WBC,Urine 146 /hpf (0-5)
[2025-02-06 19:48] LABS: Clarity,Urine Cloudy (Clear/Hazy); Color,Urine Drk Red (Lt Yel-Yel); Culture Indicated,Urine Yes
[2025-02-06 20:14] VITALS: BP 133/74; PULSE 64; RESP 15; TEMP 36.6; O2SAT 99
[2025-02-06] MEDS: cefTRIAXone/D5w 1gm IV premix 1 GM/50 ML BAG IV (20:16)
[2025-02-06 21:17] VITALS: BP 139/78; PULSE 63; RESP 18; O2SAT 99
== END 2025-02-06 21:17 | disposition home or self-care (01) ==
PROVIDERS: Nurse Practitioner Primary Care; Emergency Provider Emergency Medicine; PCP Family Medicine
DX: N39.0 Urinary tract infection, site not specified (principal); I10 Essential (primary) hypertension
CPT/HCPCS: 51702; 36415; 74176; 80053; 81001; 83690; 85025; 87077; 87086; 87186; 96365; 99284; J0696; A9270

== ENCOUNTER 2025-02-20 14:47 | Emergency (ER) | payer MEDICARE, MEDICAID, SELFPAY ==
[2025-02-20 15:00] VITALS: BP 130/79; PULSE 88; RESP 18; TEMP 36.6; O2SAT 96; BMI 26.1
--- NOTE | 2025-02-20 15:07 | PD.EDRME ---
Rapid Medical Screening Exam RME Arrival date/time: 02/20/25 14:47 Chief Complaint: General Adult/Misc Complain Vital signs: Vital Signs Temperature 97.9 F 02/20/25 15:00 Pulse Rate 88 02/20/25 15:00 Respiratory Rate 18 02/20/25 15:00 Blood Pressure 130/79 02/20/25 15:00 Pulse Oximetry (%) 96 02/20/25 15:00 Oxygen Delivery Method Room Air 02/20/25 15:00 Pulse ox 96% room air Vital signs reviewed by provider: Yes RME Narrative: 84-year-old male complains of pain and describes a sensation of feeling full. Patient dribbles urine and he tells me he just had a urinary catheter removed. Catheter was in place x 8 days.
[2025-02-20 15:45] LABS: Basophils # (Auto) 0.1 Thou/mm3 (0.0-0.2); Basophils % (Auto) 1 % (0-2.5); Eosinophils # (Auto) 0.2 Thou/mm3 (0.0-0.5); Eosinophils % (Auto) 3 % (0-10); Hematocrit 44.5 % (41.0-53.0); Hemoglobin 15.8 g/dL (13.5-16.0); Immature Granulocytes % (Auto) 1 % (0-0); Immature Granulocytes Auto 0.03 Thou/mm3 (0.00-0.00); Lymphocytes # (Auto) 2.1 Thou/mm3 (1.0-4.8); Lymphocytes % (Auto) 34 % (10-50); Mean Corpuscular HGB Conc 35.5 g/dl (31.0-37.0); Mean Corpuscular Volume 90 fL (80-100); Monocytes # (Auto) 0.7 Thou/mm3 (0.0-0.8); Monocytes % (Auto) 11 % (0-12); Neutrophils # (Auto) 3.2 Thou/mm3 (1.8-7.7); Neutrophils % (Auto) 51 % (37-80); Nucleated Red Blood Cell % 0 /100 WBC (0); Platelet Count 189 Thou/mm3 (140-440); RDW Standard Deviation 42.7 fL (35.1-43.9); Red Blood Count 4.94 Miln/mm3 (4.50-5.90); White Blood Count 6.3 Thou/mm3 (3.8-10.6)
[2025-02-20 15:45] LABS: Collection Type, Urine Clean Catch
--- NOTE | 2025-02-20 16:05 | XR_ITS ---
Examination: CT abdomen and pelvis without contrast. Coronal 3-D reconstructions. Sagittal 2-D reconstructions. Date and time of exam:February 20, 2025, 1646 hours Comparison February 06, 2025 INDICATIONS: Difficulty urinating today CTDI: vol (mGy): 6.27 DLP: (mGycm): 399 Technique: Axial images of the abdomen have been obtained, 3 mm slice thickness Intravenous contrast material has not been administered. Low dose protocols were performed. One or more of the following dose reduction techniques were used; automated exposure control, adjustment of the mA and/or KV according to patient size, use of iterative reconstruction technique. Findings: Left lobe liver cysts, the largest 24 mm Spleen not enlarged and No gallstones No pancreatic mass No renal or ureteral calculi, no hydronephrosis Perinephric stranding Normal appendix No bowel obstruction Significant prostatomegaly, AP dimension 5.4 cm Thickening of the urinary bladder wall 6 mm Fat-containing left inguinal hernia Advanced degenerative disc disease lower 3 lumbar levels IMPRESSION: Perinephric stranding, no hydronephrosis Significant prostatomegaly Thickening of the urinary bladder wall, 6 mm, differential would include cystitis, urinary tract outflow obstruction secondary to the patient's prostatomegaly
[2025-02-20 16:06] LABS: Alanine Aminotransferase 45 U/L (10-49); Albumin, Serum 4.2 gm/dL (3.4-4.8); Albumin/Globulin Ratio 1.6 (1.2-2.2); Alkaline Phosphatase 89 U/L (46-116); Anion Gap 9 (7-16); Aspartate Amino Transferase 24 U/L (0-34); BUN/Creatinine Ratio 9 Ratio (12-20); Bilirubin,Total 0.7 mg/dL (0.3-1.2); Blood Urea Nitrogen 14 mg/dL (9-23); Calcium 8.7 mg/dL (8.3-10.6); Calcium (Corrected) 8.7 mg/dL (8.5-10.1); Carbon Dioxide 26.2 mMol/L (20.0-31.0); Chloride 107 mMol/L (98-107); Creatinine (Component) 1.5 mg/dL (0.6-1.3); Globulin 2.7 gm/dL (2.3-3.5); Glucose 107 mg/dL (74-106); Lipase 38 U/L (12-53); Osmolality,Calculated 283 (275-295); Potassium 4.5 mMol/L (3.4-5.1); Sodium 142 mMol/L (136-145); Total Protein 6.9 gm/dL (5.7-8.2); eGFR 46 See Note
[2025-02-20 16:27] LABS: Bacteria,Urine Rare; Bilirubin,Urine Negative (Negative); Blood,Urine Negative (Negative); Clarity,Urine Clear (Clear/Hazy); Color,Urine Lt-Yellow (Lt Yel-Yel); Glucose, Urine Negative (Negative); Ketones,Urine Negative (Negative); Leukocyte Esterase,Urine Positive (Negative); Nitrite,Urine Negative (Negative); PH,Urine 6.5 (5.0-7.0); Protein,Urine Negative (Neg - Trace); RBC,Urine 8 /hpf (0-3); Specific Gravity,Urine 1.019 (1.001-1.035); Squamous Epithelial Cell,Urine < 1 /hpf (0-5); Urobilinogen,Urine Negative mg/dL (0.0-1.0); WBC,Urine 26 /hpf (0-5)
[2025-02-20 16:38] LABS: Culture Indicated,Urine Yes
--- NOTE | 2025-02-20 19:04 | PD.EDADULT ---
ED General RME/HPI General Chief complaint: General Adult/Misc Complain Stated complaint: UNABLE TO URINATE FOR AWHILE Time Seen by Provider: 02/20/25 19:02 Arrival date/time: 02/20/25 14:47 Limitations: no limitations RME / HPI RME / HPI narrative: 84 male with a history of enlarged prostate is here 2-3 history of dysuria. He has no nausea or vomiting. No fevers or chills. No loose stools. He states he had a recent Pena catheter was taken out approximately 8 to 10 days ago. He is able to urinate now. He has no urinary outlet obstruction. He has no other acute complaints. Related Data Home Medications ?Medication ?Instructions ?Recorded ?Confirmed carvedilol 3.125 mg tablet 3.125 mg PO BID 04/15/24 04/19/24 lisinopril 20 mg tablet 20 mg PO HS 04/15/24 04/19/24 Previous Rx's ?Medication ?Instructions ?Recorded cefuroxime axetil 500 mg tablet 500 mg PO BID Urinary tract 02/06/25 infection #14 tabs phenazopyridine 100 mg tablet 100 mg PO TID PRN pain 6 doses #6 02/06/25 (Pyridium) tabs cephalexin 500 mg capsule 500 mg PO Q12H #14 caps 02/20/25 Allergies Allergy/AdvReac Type Severity Reaction Status Date / Time No Known Allergies Allergy Verified 02/20/25 14:54 Review of Systems Review of Systems Systems Reviewed: All systems reviewed, normal except as documented ED Exam General Limitations: Present no limitations General appearance: Present alert and in no apparent distress Head Head exam: Present atraumatic Eye Eye exam: Present normal appearance, PERRL and EOMI ENT ENT exam: Present normal exam, normal oropharynx and mucous membranes moist Neck Neck exam: Present normal inspection, full ROM and trachea midline Chest Chest inspection: Present normal inspection and symmetric chest wall rise Respiratory Respiratory exam: Present normal lung sounds bilaterally Cardiovascular Cardiovascular exam: Present regular rate, normal rhythm and normal heart sounds Abdominal Exam Abdominal exam: Present soft and normal bowel sounds Extremities Exam Extremities exam: Present normal inspection and full ROM Back Exam Back exam: Present normal inspection and full ROM Neurological Exam Neurological exam: Present alert, oriented X3 and CN II-XII intact Psychiatric Psychiatric exam: Present normal affect and normal mood Skin Skin exam: Present warm, dry, intact and normal color Course Quality Measures none Orders Category Date Time Status CT abdomen pelvis wo con Stat Exams 02/20/25 16:05 Completed CBC Stat Lab 02/20/25 15:18 Completed Comprehensive Metabolic Panel Stat Lab 02/20/25 15:18 Completed Lipase Stat Lab 02/20/25 15:18 Completed UA, C/S IF [Urinalysis, C/S if Indicated] Stat Lab 02/20/25 15:15 Completed Urine Culture Stat Lab 02/20/25 15:15 Received cephALEXin [Keflex] Med 02/20/25 19:25 Discontinued 500 mg PO X1 ONE Vital Signs Vital signs: Vital Signs Temperature 97.9 F 02/20/25 15:00 Pulse Rate 88 02/20/25 15:00 Respiratory Rate 18 02/20/25 15:00 Blood Pressure 130/79 02/20/25 15:00 Pulse Oximetry (%) 96 02/20/25 15:00 Oxygen Delivery Method Room Air 02/20/25 15:00 Discharge Plan Plan Patient Disposition: HOME (Self Care) Patient condition on transfer: Stable Prescriptions/Referrals Prescriptions/Med Rec: New cephalexin 500 mg capsule 500 mg PO Q12H Qty: 14 0RF No Action lisinopril 20 mg tablet 20 mg PO HS carvedilol 3.125 mg Tablet 3.125 mg PO BID Rx Instructions: must administer with a meal/food phenazopyridine [Pyridium] 100 mg tablet 100 mg PO TID PRN (Reason: pain) Qty: 6 0RF cefuroxime axetil 500 mg tablet 500 mg PO BID Qty: 14 0RF Referrals: Andrea Jean MD [Primary Care Provider] - In 1 week Problem List Clinical Impression: Acute UTI Patient/Caregiver Discharge Instructions Education Materials: ED Bladder Infection, Male (Adult) Additional Instructions: Increase oral hydration to 2-3 liters of water daily. Use provided antibiotic as prescribed. Please have a very low threshold for returning here for any worsening changes. This includes but not limited to worsening angel pain, pelvic pain, fever, or any other emergent concerns. Print Language: Albanian Stand Alone Forms: [employer] Info., Patient Portal Info Letter MDM Narrative MDM hospital course: 84-year-old male is here today with a 1 day history of frequent dysuria. He does have an enlarged prostate. He had a Pena catheter was removed approximately 8 days ago. He denies any fevers or chills. Vital signs are stable. Do not believe the patient is uroseptic at this point. Patient replaced on Keflex. We discussed return precautions. It does not appear that he does have an outlet obstruction at this time however he is at risk for this. He agrees return anytime for any worsening pelvic pain, Arvind pain, fevers, or any other emergent changes. Clinical Information Provided by patient Medical Records Reviewed [facility] Lab Interpretation Labs: none, interpreted by me, see narrative above (There is no leukocytosis or metabolic derangement. Urinalysis consistent with UTI.) and other Medication Administration(s) Medication Administration History Discontinued Medications Cephalexin HCl (Cephalexin 250 Mg Capsule) 500 mg PO X1 ONE Stop: 02/20/25 19:26 See above Dispositon Disposition: Discharge Home
[2025-02-20 19:20] VITALS: BP 135/76; PULSE 71; RESP 18; TEMP 36.9; O2SAT 97
[2025-02-20] MEDS: cephALEXin 250 MG CAPSULE 500 MG PO (19:36)
== END 2025-02-20 19:50 | disposition home or self-care (01) ==
PROVIDERS: Physician Assistant; Emergency Provider Emergency Medicine; PCP Family Medicine
DX: N39.0 Urinary tract infection, site not specified (principal); N40.1 Benign prostatic hyperplasia with lower urinary tract symptoms; R33.8 Other retention of urine; K76.89 Other specified diseases of liver; K40.90 Unilateral inguinal hernia, without obstruction or gangrene, not specified as recurrent; M51.369 Other intervertebral disc degeneration, lumbar region without mention of lumbar back pain or lower extremity pain
CPT/HCPCS: 36415; 74176; 80053; 81001; 83690; 85025; 87077; 87086; 87186; 99284; A9270

== ENCOUNTER → 2025-07-05 | Outpatient (CLI) | payer MEDICARE, MEDICAID, SELFPAY ==
--- NOTE | 2025-07-05 06:42 | EKG_ITS ---
[facility] Test Date: 2025-07-05 Pat Name: JLUIS REYNOSO Department: Room: - Gender: Male [employer]oter: [place] : 1940 Requested By: Owen Hair Order Number: [id number] Reading MD: Owen Hair Measurements Intervals Iselin Rate: 68 P: 56 NC: 184 QRS: 21 QRSD: 97 T: 13 QT: 376 QTc: 402 Interpretive Statements SINUS RHYTHM NONSPECIFIC T-WAVE ABNORMALITY Compared to ECG 04/15/2024 08:05:12 Indeterminate axis no longer present T-wave abnormality still present /store/S0/[id number]
[2025-07-05 09:50] VITALS: BMI 27.5
[2025-07-05 11:25] LABS: Basophils # (Auto) 0.1 Thou/mm3 (0.0-0.2); Basophils % (Auto) 1 % (0-2.5); Eosinophils # (Auto) 0.1 Thou/mm3 (0.0-0.5); Eosinophils % (Auto) 1 % (0-10); Hematocrit 51.5 % (41.0-53.0); Hemoglobin 17.1 g/dL (13.5-16.0); Immature Granulocytes Auto 0.04 Thou/mm3 (0.00-0.00); Lymphocytes # (Auto) 1.8 Thou/mm3 (1.0-4.8); Lymphocytes % (Auto) 24 % (10-50); Mean Corpuscular HGB Conc 33.2 g/dl (31.0-37.0); Mean Corpuscular Hemoglobin 30.5 pg (25.0-35.0); Mean Corpuscular Volume 92 fL (80-100); Monocytes # (Auto) 0.7 Thou/mm3 (0.0-0.8); Monocytes % (Auto) 9 % (0-12); Neutrophils # (Auto) 4.9 Thou/mm3 (1.8-7.7); Neutrophils % (Auto) 64 % (37-80); Nucleated Red Blood Cell # 0.00 Thou/mm3 (0.00-0.00); Nucleated Red Blood Cell % 0 /100 WBC (0); Platelet Count 172 Thou/mm3 (140-440); RDW Standard Deviation 44.5 fL (35.1-43.9); Red Blood Count 5.61 Miln/mm3 (4.50-5.90); White Blood Count 7.6 Thou/mm3 (3.8-10.6)
[2025-07-05 11:39] LABS: Alanine Aminotransferase 12 U/L (10-49); Albumin, Serum 4.4 gm/dL (3.4-4.8); Albumin/Globulin Ratio 1.7 (1.2-2.2); Alkaline Phosphatase 86 U/L (46-116); Anion Gap 10 (7-16); Aspartate Amino Transferase 19 U/L (0-34); BUN/Creatinine Ratio 8 Ratio (12-20); Bilirubin,Total 0.6 mg/dL (0.3-1.2); Blood Urea Nitrogen 13 mg/dL (9-23); Calcium 9.0 mg/dL (8.3-10.6); Calcium (Corrected) 9.0 mg/dL (8.5-10.1); Carbon Dioxide 30.2 mMol/L (20.0-31.0); Chloride 105 mMol/L (98-107); Creatinine (Component) 1.6 mg/dL (0.6-1.3); Estimated Creatinine Clearance 30.2 mL/min (>60); Globulin 2.6 gm/dL (2.3-3.5); Glucose 109 mg/dL (74-106); Osmolality,Calculated 289 (275-295); Potassium 4.8 mMol/L (3.4-5.1); Sodium 145 mMol/L (136-145); Total Protein 7.0 gm/dL (5.7-8.2); eGFR 43 See Note
== END | disposition home or self-care (01) ==
LOC: SLAB 07-13 08:04
PROVIDERS: Anesthesiology; PCP Family Medicine; Referring Provider Surgery; Visit Provider Surgery
DX: N40.1 Benign prostatic hyperplasia with lower urinary tract symptoms (principal)
CPT/HCPCS: 36415; 80053; 81001; 85025; 87086; 93005